=== PATIENT | female | born 1985 | race Hispanic/Latino ===

== ENCOUNTER → 2023-10-11 15:58 | Outpatient (REF) | payer OTHER, SELFPAY ==
[2023-10-11 16:41] LABS: ALT (SGPT) 30 U/L (0-35); AST (SGOT) 25 U/L (14-36); Albumin 4.3 g/dl (3.5-5.0); Alkaline Phosphatase 82 U/L (38-126); Blood Urea Nitrogen 12 mg/dl (7-17); Calcium 9.2 mg/dl (8.4-10.2); Carbon Dioxide 24 mmol/L (22-30); Chloride 105 mmol/L (98-107); Glucose 95 mg/dl (70-99); Potassium 4.1 mmol/L (3.5-5.1); Sodium 138 mmol/L (135-145); Total Bilirubin 0.3 mg/dl (0.2-1.3); Total Protein 7.7 g/dl (6.3-8.2); eGFR > 60.00
[2023-10-11 16:59] LABS: Vitamin D, 25-OH*** 29.7 ng/mL (30-80)
[2023-10-12 08:56] LABS: Glycohemoglobin (HgbA1c) 5.5 % (4.0-5.6)
== END ==
LOC: REG 15:58
PROVIDERS: ATTENDING PHYSICIAN Nurse Practitioner Adult Health
DX: E55.9 Vitamin D deficiency, unspecified (principal); Z83.3 Family history of diabetes mellitus
CPT/HCPCS: 36415; 80053; 82306; 83036

== ENCOUNTER 2024-01-31 14:04 | Emergency (ER) | payer SELFPAY ==
[2024-01-31 14:12] VITALS: BP 132/88
--- NOTE | 2024-01-31 15:00 | ED.GENMED ---
History of Present Illness
General
Chief Complaint: Back Pain
Source: patient
Exam Limitations: none
Time Seen by Provider: 01/31/24 14:58
Nursing documentation reviewed up to this point in time: agreed with
History of Present Illness
History of Present Illness:
38 yo female states she has had a cough for 2 weeks. 7 days ago she was seen at urgent care and given Tessalon Perles on 01/24, she has used these with no improvement in her cough. She states she has developed pain across her back from the
significant cough. She states she has felt feverish but has not taken her temperature. She denies nausea or vomiting or diarrhea. Her 18-year-old daughter is home with similar symptoms, starting to get a little better with Robitussin.
Past History
Past History
ED Past Medical History: None
ED Past Surgical History: None
Social History
Tobacco: Non-smoker
Alcohol: None
Drug: None
Living: with family
Employment: Not employed
Review of Systems
Review of Systems
Allergies reviewed?: Yes
All Other Systems: ROS reviewed and negative except as documented in HPI and ROS
Constitutional: Reports fatigue; Denies fever
EENT: Denies sore throat
Respiratory: Reports cough
Cardiac: Denies chest pain
ABD/GI: Denies abdominal pain, nausea or vomiting
: Denies dysuria or difficulty voiding
Musculoskeletal: Reports back pain (Has developed pain across her mid back from the cough)
Skin: Reports no symptoms
Neurological: Reports no symptoms
Phy Exam
Physical Exam
Physical Exam:
GENERAL: No acute distress. A&Ox3.
CONSTITUTIONAL: Afebrile.
EYES: PERRL, conjunctivae normal
Neck: Supple
ENMT: moist mucus membranes, Pharynx nl
RESPIRATORY: Regular respirations, nonlabored, lungs clear, frequent dry hacking paroxysms of cough
CARDIOVASCULAR: Regular rate and rhythm, no murmurs, no rubs.
GI: Soft, nontender, normal BS
MUSCULOSKELETAL: Moves with ease. Well perfused.
SKIN: Warm, dry, pink
PSYCH: Normal mood and affect. Well kept, interactive and appropriate
NEUROLOGIC: Awake, alert and oriented. No focal neurological deficits
Course
Orders/Labs/Results
Orders:
Orders
01/31/24 15:23
Dexamethasone [Decadron] 10 mg PO NOW STA
Ibuprofen [Motrin] 600 mg PO NOW STA
Ipratropium/Albuterol Sulfate [Duoneb] 3 ml INH R NOW STA
01/31/24 15:24
CR Chest - 2 Views Urgent
Comment:
Reason For Exam: cough 12 days
01/31/24 15:36
COVID-19 Antigen Urgent
Source: Nasal Swab
Vital Signs
Initial and Last Documented VS:
Initial Vital Signs
Temp Pulse Resp BP Pulse Ox
98.6 F 99 18 132/88 98
01/31/24 14:12 01/31/24 14:12 01/31/24 14:12 01/31/24 14:12 01/31/24 14:12
Last Documented Vital Signs
Temp Pulse Resp BP Pulse Ox
98.6 F 88 18 128/80 99
01/31/24 14:12 01/31/24 18:07 01/31/24 18:07 01/31/24 18:07 01/31/24 18:07
MDM/Problems Addressed
Differential Diagnosis Includes:
Viral bronchitis, pneumonia, COVID
MDM/Problems Addressed:
38 yo female states she has had a cough for 2 weeks. 7 days ago she was seen at urgent care and given Tessalon Perles on 01/24, she has used these with no improvement in her cough. She states she has developed pain across her back from the
significant cough. She states she has felt feverish but has not taken her temperature. She denies nausea or vomiting or diarrhea. Her 18-year-old daughter is home with similar symptoms, starting to get a little better with Robitussin.
Afebrile, NAD, persistent hacking cough
5:15 p.m.
Covid neg
CXR: NAD
After Duoneb and Decadron, Ibuprofen, feeling somewhat better, not coughing as much
rx for Prednisone 40 mg daily x 3 days, Theeck sent to her pharmacy. Albuterol inhaler was sent to her pharmacy from Urgent Care
*Critical Care Note
Total Time (30-74mins, 75-104mins- exclusive of procedures): Not Applicable
ED Attending Note
-
Portions of this chart may have been created with voice recognition software.� Occasional wrong word or��sound alike� substitutions may have occurred due to the inherent limitations of voice recognition software.
Discharge Plan
Departure
Patient Disposition: Home (Routine Discharge)
Date of Disposition: 01/31/24
Time of Disposition: 17:17
Patient with high blood pressure during this ER visit?: No
Condition: Good
Covid-19: Negative COVID-19
Discharge Problem:
Acute bronchitis
Instructions: Acute Bronchitis, Adult (DC), Musculoskeletal Pain
Prescriptions:
New
prednisone 20 mg tablet
40 mg PO DAILY Qty: 6 0RF
azithromycin [Zithromax] 250 mg tablet
250 mg PO DAILY Qty: 6 0RF
Rx Instructions:
Take 500 mg day one, then 250 mg daily for next 4 days
No Action
benzonatate 100 MG capsule
100 mg PO TIDPRN PRN (Reason: cough) Qty: 20 0RF
ibuprofen 600 MG tablet
600 mg PO Q6H Qty: 20 0RF
albuterol sulfate [Ventolin HFA] 90 MCG/PUFF HFA aerosol inhaler
2 puff inhalation Q6H PRN (Reason: cough/wheezing) Qty: 1 0RF
Rx Instructions:
Please dispense with a spacer.
Referrals:
Carmen Gallagher, GERIATRICIAN [Family Provider] - Call in 1-3 days for appt
Activity Restrictions/Additional Instructions:
As we discussed, I sent a prescription to your pharmacy for Prednisone to help with the inflammation in your lungs, Azithromycin antibiotic for bronchitis.
Use the Albuterol inhaler that was prescribed by the Clinic nurse practitioner.
Ibuprofen 600 mg every 6 hours as needed for the back pain caused from your coughing.
Go back to the Clinic in one week if you are not much improved by then.
Interventions
Interventions:
*Risk Screen - Suicide Last Done: 01/31/24 14:12
*General Assessment Last Done: 01/31/24 14:12
*Neglect/Abuse Screening Last Done: 01/31/24 14:12
*Nursing Disposition Last Done: 01/31/24 18:09
ED-Musculoskeletal Assessment Last Done: 01/31/24 14:45
ED- Pulmonary Assessment Last Done: 01/31/24 14:45
Discharge Date and Time
Discharge Date/Time: 01/31/24 18:09
Print Language: MACEDONIAN
[2024-01-31] MEDS: DECADRON 10 MG PO (15:35)
[2024-01-31] MEDS: DUONEB 3 ML INH (15:35)
[2024-01-31] MEDS: MOTRIN 600 MG PO (15:35)
[2024-01-31 16:04] LABS: COVID-19 Antigen Negative (Negative)
[2024-01-31 18:07] VITALS: BP 128/80
== END 2024-01-31 18:09 | disposition home or self-care (01) ==
LOC: EMR 14:04
PROVIDERS: Registered Nurse; EMERGENCY PHYSICIAN Emergency Medicine; FAMILY PHYSICIAN Nurse Practitioner Adult Health
DX: J20.9 Acute bronchitis, unspecified (principal); Z11.52 Encounter for screening for COVID-19
CPT/HCPCS: 99283; 94640; 71046; 87811

== ENCOUNTER → 2024-03-06 15:10 | Outpatient (REF) | payer OTHER, SELFPAY ==
[2024-03-09 09:54] LABS: H. pylori Breath Test Positive (Negative)
== END ==
LOC: CLINIC 15:10
PROVIDERS: ATTENDING PHYSICIAN Nurse Practitioner Adult Health
DX: R10.13 Epigastric pain (principal)
CPT/HCPCS: 36415; 83013

== ENCOUNTER → 2024-11-06 14:12 | Outpatient (REF) | payer OTHER, SELFPAY ==
[2024-11-06 16:22] LABS: Vitamin D, 25-OH*** 21.8 ng/mL (30-80)
[2024-11-09 03:15] LABS: H. pylori Breath Test Negative (Negative)
== END ==
LOC: REG 14:12
PROVIDERS: ATTENDING PHYSICIAN Nurse Practitioner Adult Health
DX: E55.9 Vitamin D deficiency, unspecified (principal); R10.13 Epigastric pain
CPT/HCPCS: 36415; 82306; 83013